=== PATIENT | female | born 1965 | race Caucasian/White ===

== ENCOUNTER 2016-12-16 12:59 | Emergency (ER) | payer SELFPAY ==
[~2016-12-16] VITALS: Ht 172.7 cm; Wt 63.5 kg
[2016-12-16] MEDS ORDERED: NS IV 1000 ML 1,000 ML IV ONE (13:06)
[2016-12-16] MEDS ORDERED: RT-ALBUINH IH (13:12)
[2016-12-16] MEDS ORDERED: DILT180C PO (13:12)
[2016-12-16] MEDS ORDERED: MONT10TA24 PO (13:12)
[2016-12-16] MEDS ORDERED: ALPR0.25 PO (13:12)
[2016-12-16] MEDS ORDERED: ASPI1TAB22 PO (13:12)
[2016-12-16] MEDS ORDERED: BUDE10.2 IH (13:12)
[2016-12-16 13:25] LABS: BASOPHILS % (AUTO) 0 % (0-10); EOSINOPHILS # (AUTO) 0.3 10^3/uL (0.0-0.3); EOSINOPHILS % (AUTO) 2 % (0-10); LYMPHOCYTES % (AUTO) 7 % (12-44); MEAN CORPUSCULAR HEMOGLOBIN 29 PG (25-34); MEAN CORPUSCULAR HGB CONC 35 G/DL (32-36); MEAN CORPUSCULAR VOLUME 83 FL (80-99); MEAN PLATELET VOLUME 10.3 FL (7.4-10.4); MONOCYTES # (AUTO) 0.5 X 10^3 (0.0-1.0); MONOCYTES % (AUTO) 3 % (0-12); NEUTROPHILS # (AUTO) 12.4 X 10^3 (1.8-7.8); NEUTROPHILS % (AUTO) 87 % (42-75); PLATELET COUNT 240 10^3/uL (130-400); RED BLOOD COUNT 4.65 10^6/uL (4.35-5.85); RED CELL DISTRIBUTION WIDTH 14.1 % (10.0-14.5); WHITE BLOOD COUNT 14.2 10^3/uL (4.3-11.0)
[2016-12-16 13:44] LABS: BAND NEUTROPHILS 1 %; BASOPHILS % (MANUAL) 0 %; EOSINOPHILS % (MANUAL) 0 %; LYMPHOCYTES % (MANUAL) 11 %; NEUTROPHILS % (MANUAL) 83 %
--- NOTE | 2016-12-16 13:52 | ED Abdominal Pain ---
General Chief Complaint: Abdominal/GI Problems Stated Complaint: RIGHT FLANK PAIN/BLOOD IN URINE Nursing Triage Note: c/o R flank pain starting earlier, patient reports going to [facility] and given shot of toradol and phenergan. patient was told she had blood in her urine Sepsis Screen: No Definite Risk Source of Information: Patient Exam Limitations: No Limitations History of Present Illness Time Seen By Provider: 13:00 Initial Comments This 51-year-old woman presents to the emergency room with complaints of right flank pain and hematuria. She was actually seen at [facility] in [place] earlier today for right flank pain. A UA was performed and she was found to have hematuria. She was given injections of Phenergan and Toradol. Pain and nausea have resolved. However, she was advised to present to this ER for further evaluation. She was felt to likely have a ureteral stone and the CT scanner at [facility] was not functioning today. Allergies and Home Medications Allergies Coded Allergies: tramadol (Verified Allergy, Unknown, 12/16/16) Home Medications Albuterol Sulfate 1 Puff Puff, 2 PUFF IH Q4H, (Reported) 1 PUFF = 90 MCG Alprazolam 0.25 Mg Tablet, 0.25 MG PO, (Reported) Aspirin/Acetaminophen/Caffeine 1 Each Tablet, 1 EACH PO, (Reported) Budesonide/Formoterol Fumarate 10.2 Gm Hfa.aer.ad, 2 PUFF IH BID, (Reported) Diltiazem HCl 180 Mg Cap.er.24h, 180 MG PO DAILY, (Reported) Hydrocodone/Acetaminophen 1 Each Tablet, 1-2 EACH PO Q6H PRN for PAIN, #20 Prescribed by: ROBERTO DE SOUZA on 12/16/16 1450 Montelukast Sodium 10 Mg Tablet, 10 MG PO, (Reported) Ondansetron 4 Mg Tab.rapdis, 4 MG SL Q4H PRN for NAUSEA-1ST LINE, #10 Ref 1 Prescribed by: ROBERTO DE SOUZA on 12/16/16 1450 Sulfamethoxazole/Trimethoprim 1 Each Tablet, 1 EACH PO BID, #20 Prescribed by: ROBERTO DE SOUZA on 12/16/16 1457 Review of Systems Constitutional: no symptoms reported EENTM: No Symptoms Reported Respiratory: No Symptoms Reported Cardiovascular: No Symptoms Reported Gastrointestinal: See HPI Genitourinary: See HPI Musculoskeletal: no symptoms reported Skin: no symptoms reported Psychiatric/Neurological: No Symptoms Reported Past Mmydhfr-Qpjvty-Trznez Hx Patient Social History Alcohol Use: Denies Use Recreational Drug Use: No Smoking Status: Never a Smoker Recent Foreign Travel: No Contact w/Someone Who Travel: No Recent Infectious Disease Expo: No Recent Hopitalizations: No Seasonal Allergies Seasonal Allergies: Yes Surgeries HX Surgeries: Yes (D&C) Respiratory Hx Respiratory Disorders: Yes Respiratory Disorders: COPD Cardiovascular Hx Cardiac Disorders: Yes (TACHYCARDIA) Neurological Hx Neurological Disorders: Yes Neurological Disorders: Headaches /Migraines Reproductive System Hx Reproductive Disorders: No Sexually Transmitted Disease: No Genitourinary Hx Genitourinary Disorders: Yes Genitourinary Disorders: Kidney Stones Gastrointestinal Hx Gastrointestinal Disorders: No Musculoskeletal Hx Musculoskeletal Disorders: No Endocrine Hx Endocrine Disorders: No HEENT HX ENT Disorders: Yes (strabismus) Cancer Hx Cancer: No Psychosocial Hx Psychiatric Problems: Yes Behavioral Health Disorders: Anxiety Integumentary HX Skin/Integumentary Disorder: No Blood Transfusions Hx Blood Disorders: No Physical Exam Vital Signs VS - Last 72 Hours, by Label 12/16/16 12/16/16 13:03 15:24 Temp 97.7 Pulse 110 108 Resp 18 18 B/P (MAP) 155/78 Pulse Ox 100 99 O2 Delivery Room Air Capillary Refill : Less Than 3 Seconds General Appearance: WD/WN, no apparent distress HEENT: PERRL/EOMI, normal ENT inspection, pharynx normal Neck: normal inspection Respiratory: lungs clear, normal breath sounds, no respiratory distress, no accessory muscle use Cardiovascular: no edema, no murmur, tachycardia Gastrointestinal: normal bowel sounds, non tender, soft Extremities: normal inspection, no pedal edema Back: normal inspection, no CVA tenderness Neurologic/Psychiatric: meal packer II-XII nml as tested, no motor/sensory deficits, alert, normal mood/affect, oriented x 3 Skin: normal color, warm/dry Progress/Results/Core Measures Results/Orders Lab Results Laboratory Tests Test 12/16/16 13:15 12/16/16 13:52 Range/Units White Blood Count 14.2 H 4.3-11.0 10^3/uL Red Blood Count 4.65 4.35-5.85 10^6/uL Hemoglobin 13.6 11.5-16.0 G/DL Hematocrit 39 35-52 % Mean Corpuscular Volume 83 80-99 FL Mean Corpuscular Hemoglobin 29 25-34 PG Mean Corpuscular Hemoglobin Concent 35 32-36 G/DL Red Cell Distribution Width 14.1 10.0-14.5 % Platelet Count 240 130-400 10^3/uL Mean Platelet Volume 10.3 7.4-10.4 FL Neutrophils (%) (Auto) 87 H 42-75 % Lymphocytes (%) (Auto) 7 L 12-44 % Monocytes (%) (Auto) 3 0-12 % Eosinophils (%) (Auto) 2 0-10 % Basophils (%) (Auto) 0 0-10 % Neutrophils # (Auto) 12.4 H 1.8-7.8 X 10^3 Lymphocytes # (Auto) 1.0 1.0-4.0 X 10^3 Monocytes # (Auto) 0.5 0.0-1.0 X 10^3 Eosinophils # (Auto) 0.3 0.0-0.3 10^3/uL Basophils # (Auto) 0.0 0.0-0.1 10^3/uL Neutrophils % (Manual) 83 % Lymphocytes % (Manual) 11 % Monocytes % (Manual) 5 % Eosinophils % (Manual) 0 % Basophils % (Manual) 0 % Band Neutrophils 1 % Blood Morphology Comment NORMAL Sodium Level 141 135-145 MMOL/L Potassium Level 4.3 3.6-5.0 MMOL/L Chloride Level 106 98-107 MMOL/L Carbon Dioxide Level 22 21-32 MMOL/L Anion Gap 13 5-14 MMOL/L Blood Urea Nitrogen 9 7-18 MG/DL Creatinine 0.80 0.60-1.30 MG/DL Estimat Glomerular Filtration Rate > 60 BUN/Creatinine Ratio 11 Glucose Level 100 70-105 MG/DL Calcium Level 9.4 8.5-10.1 MG/DL Total Bilirubin 0.3 0.1-1.0 MG/DL Aspartate Amino Transf (AST/SGOT) 29 5-34 U/L Alanine Aminotransferase (ALT/SGPT) 15 0-55 U/L Alkaline Phosphatase 81 40-136 U/L Total Protein 8.1 6.4-8.2 G/DL Albumin 4.4 3.2-4.5 G/DL Urine Color YELLOW Urine Clarity CLEAR Urine pH 6.5 5-9 Urine Specific Burton 1.020 1.016-1.022 Urine Protein 1+ H NEGATIVE Urine Glucose (UA) NEGATIVE NEGATIVE Urine Ketones NEGATIVE NEGATIVE Urine Nitrite NEGATIVE NEGATIVE Urine Bilirubin NEGATIVE NEGATIVE Urine Urobilinogen NORMAL NORMAL MG/DL Urine Leukocyte Esterase 1+ H NEGATIVE Urine RBC (Auto) 4+ H NEGATIVE Urine RBC 10-25 H /HPF Urine WBC 2-5 /HPF Urine Squamous Epithelial Cells 5-10 /HPF Urine Crystals PRESENT H /LPF Urine Calcium Oxalate Crystals RARE H /LPF Urine Bacteria FEW H /HPF Urine Casts NONE /LPF Urine Mucus MODERATE H /LPF Urine Culture Indicated YES Micro Results Microbiology 12/16/16 Urine Culture - Final, Complete My Orders Orders - ROBERTO IZAGUIRRE MD Cbc With Automated Diff (12/16/16 13:00) Comprehensive Metabolic Panel (12/16/16 13:00) Ua Culture If Indicated (12/16/16 13:00) Saline Lock/Iv-Start (12/16/16 13:00) Ns Iv 1000 Ml (Sodium Chloride 0.9%) (12/16/16 13:06) Manual Differential (12/16/16 13:15) Urine Culture (12/16/16 13:52) Ct Abd/Pelvis Wo(Kidney Stone) (12/16/16 14:29) Medications Given in ED Vital Signs/I&O Vital Sign - Last 12Hours 12/16/16 12/16/16 13:03 15:24 Temp 97.7 Pulse 110 108 Resp 18 18 B/P (MAP) 155/78 Pulse Ox 100 99 O2 Delivery Room Air Blood Pressure Mean: 103 Progress Note : Progress Note UA confirmed presence of blood. CT was ordered for evaluation of ureteral stone. Ureteral stone was confirmed. Patient was given a liter of IV fluids. She was dismissed on antibiotic therapy due to the elevated WBC count. Follow- up and referral to urologist was recommended. Diagnostic Imaging Diagonstic Imaging: CT Plain Films/CT/US/NM/MRI: abdomen, pelvis Comments CT scan abdomen and pelvis viewed by me and report reviewed. Discussed with radiologist. See report below: NAME: [facility] REC#: [id number] PT STATUS: DEP ER : 1965 PHYSICIAN: ROBERTO IZAGUIRRE MD ADMIT DATE: 12/16/16/ER Signed Date of Exam: 12/16/16 CT ABD/PELVIS WO(KIDNEY STONE) PROCEDURE: CT urinary tract, rule out kidney stone. TECHNIQUE: Multiple contiguous axial images were obtained through the abdomen and pelvis without the use of intravenous contrast. INDICATION: Right-sided abdominal pain. COMPARISON: There are no prior studies available for comparison. FINDINGS: Axial Image 117/147 through the low pelvis does show a 2-3 mm calculus within the distal right ureter roughly 1 cm from the ureterovesical junction. The ureter proximal to the calculus is slightly dilated as is the right renal pelvis and I do suspect that there is partial obstruction of the right collecting system due to the aforementioned calculus. There is no evidence for nephrolithiasis on the right but there are two small (2-3 mm) nonobstructive calculi within the left kidney. There is no sign of obstruction of the left collecting system. The urinary bladder is grossly unremarkable. The appendix was visualized and is not abnormally thickened. The uterus is not enlarged. There is no pelvic mass or free fluid collection noted. The liver does not appear to be enlarged. There is no focal mass involving the liver. The spleen, pancreas, adrenals, gallbladder, aorta, and inferior vena cava are unremarkable for an acute abnormality. The stomach is not well distended and consequently difficult to assess. The lung bases are clear. There are mild chronic changes in each lower lobe. There is no obvious breast mass. The bone windows show no sign of a fracture or of a destructive lesion. IMPRESSION: 1. There is partial obstruction of the right collecting system due to a 2-3 mm calculus near the ureterovesical junction. There are also small nonobstructive calculi within the left kidney. 2. There is no acute abnormality of the abdomen or pelvis noted, otherwise. 3. These results were discussed with Dr. Izaguirre in the ER. Dictated by: Dictated on workstation # [id number] Dict: 12/16/16 1510 Trans: 12/17/1617 AS6 [id number] Interpreted by: ELTON TELLO MD Electronically signed by:ELTON TELLO MD 12/17/16716 Departure Impression Impression: Primary Impression: Right ureteral stone Additional Impressions: Ureteral obstruction Leukocytosis Qualified Codes: D72.829 - Elevated white blood cell count, unspecified Disposition: 01 HOME, SELF-CARE Condition: Improved Departure-Patient Inst. Decision time for Depature: 14:47 Referrals: NO,LOCAL PHYSICIAN (PCP/Family) Primary Care Physician Patient Instructions: Kidney Stones in Adults Add. Discharge Instructions: Drink plenty of clear liquids. Strain your urine and bring any stones collected to your follow-up appointment. Follow-up with your doctor as soon as possible. Return to the ER if symptoms worsen. Complete your antibiotics as prescribed. You may use Zofran (ondansetron) as prescribed for nausea and vomiting. Use hydrocodone as prescribed for pain. All discharge instructions reviewed with patient and/or family. Voiced understanding. Scripts Sulfamethoxazole/Trimethoprim (Bactrim Ds Tablet) 1 Each Tablet 1 EACH PO BID, #20 TAB Prov: ROBERTO IZAGUIRRE MD 12/16/16 Hydrocodone/Acetaminophen (Hydrocodon -Acetaminophen 5-325) 1 Each Tablet 1-2 EACH PO Q6H Y for PAIN, #20 TAB Prov: ROBERTO IZAGUIRRE MD 12/16/16 Ondansetron (Zofran Odt) 4 Mg Tab.rapdis 4 MG SL Q4H Y for NAUSEA-1ST LINE, #10 TAB 1 Refill Prov: ROBERTO IZAGUIRRE MD 12/16/16 ROBERTO IZAGUIRRE MD Dec 16, 2016 13:52
[2016-12-16 14:03] LABS: BILIRUBIN,URINE NEGATIVE (NEGATIVE); KETONES,URINE NEGATIVE (NEGATIVE); LEUKOCYTE ESTERASE ,URINE 1+ (NEGATIVE); NITRITE,URINE NEGATIVE (NEGATIVE); PH,URINE 6.5 (5-9); PROTEIN,URINE 1+ (NEGATIVE); UROBILINOGEN,URINE NORMAL (NORMAL)
[2016-12-16 14:18] LABS: CALCIUM OXALATE CRYSTALS,UR RARE /LPF
[2016-12-16 14:29] LABS: ALANINE AMINOTRANSFERASE 15 U/L (0-55); ALBUMIN 4.4 G/DL (3.2-4.5); ANION GAP 13 MMOL/L (5-14); ASPARTATE AMINO TRANSFERASE 29 U/L (5-34); BILIRUBIN,TOTAL 0.3 MG/DL (0.1-1.0); BLOOD UREA NITROGEN 9 MG/DL (7-18); BUN/CREATININE RATIO 11; CALCIUM 9.4 MG/DL (8.5-10.1); CARBON DIOXIDE 22 MMOL/L (21-32); CHLORIDE 106 MMOL/L (98-107); GFR ESTIMATED > 60; GLUCOSE 100 MG/DL (70-105); SODIUM 141 MMOL/L (135-145); TOTAL PROTEIN 8.1 G/DL (6.4-8.2)
[2016-12-16 14:38] LABS: POTASSIUM 4.3 MMOL/L (3.6-5.0)
[2016-12-16] MEDS ORDERED: HYDR-3812 PO (14:50)
[2016-12-16] MEDS ORDERED: ONDA4TAB8 SL (14:50)
[2016-12-16] MEDS ORDERED: SULF1TAB35 PO ×2 (14:54→14:57)
[2016-12-16 15:24] VITALS: BP 123/79
--- NOTE | 2016-12-16 15:37 | Diagnostic Imaging Report ---
PROCEDURE: CT urinary tract, rule out kidney stone. TECHNIQUE: Multiple contiguous axial images were obtained through the abdomen and pelvis without the use of intravenous contrast. INDICATION: Right-sided abdominal pain. COMPARISON: There are no prior studies available for comparison. FINDINGS: Axial Image 117/147 through the low pelvis does show a 2-3 mm calculus within the distal right ureter roughly 1 cm from the ureterovesical junction. The ureter proximal to the calculus is slightly dilated as is the right renal pelvis and I do suspect that there is partial obstruction of the right collecting system due to the aforementioned calculus. There is no evidence for nephrolithiasis on the right but there are two small (2-3 mm) nonobstructive calculi within the left kidney. There is no sign of obstruction of the left collecting system. The urinary bladder is grossly unremarkable. The appendix was visualized and is not abnormally thickened. The uterus is not enlarged. There is no pelvic mass or free fluid collection noted. The liver does not appear to be enlarged. There is no focal mass involving the liver. The spleen, pancreas, adrenals, gallbladder, aorta, and inferior vena cava are unremarkable for an acute abnormality. The stomach is not well distended and consequently difficult to assess. The lung bases are clear. There are mild chronic changes in each lower lobe. There is no obvious breast mass. The bone windows show no sign of a fracture or of a destructive lesion. IMPRESSION: 1. There is partial obstruction of the right collecting system due to a 2-3 mm calculus near the ureterovesical junction. There are also small nonobstructive calculi within the left kidney. 2. There is no acute abnormality of the abdomen or pelvis noted, otherwise. 3. These results were discussed with Dr. Izaguirre in the ER. Dictated by: Dictated on workstation # [id number]
--- OUTSIDE RECORDS SUMMARY | 2017-01-17 17:18 | XMS REPORT | Continuity of Care Document ---
Author Author [facility] Organization [facility] Address Unknown Phone Unavailable Allergies Active Description Code Type Severity Reaction Onset Reported/Identified Relationship to Patient Clinical Status Yes No Known Drug Allergies [id number] Drug Allergy Unknown N/ A 12/16/2016 Yes tramadol [id number] Drug Allergy Unknown N/A 12/16/2016 Medications Problems Date Dx Coded Attending Type Code Diagnosis Diagnosed By 12/17/2016 ROBERTO JASON MD T Ot D72.829 ELEVATED WHITE BLOOD CELL COUNT, UNSPECI 12/17/2016 ROBERTO JASON MD Ot J44.9 CHRONIC OBSTRUCTIVE PULMONARY DISEASE , U 12/17/2016 ROBERTO JASON MD Ot N20.2 CALCULUS OF KIDNEY WITH CALCULUS OF URET 12/17/2016 ROBERTO JASON MD Ot R10.31 RIGHT LOWER QUADRANT PAIN 12/17/2016 ROBERTO JASON MD Ot R31.9 HEMATURIA, UNSPECIFIED 12/17/2016 ROBERTO JASON MD T Ot Z79.82 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INTAINER (CURRENT) USE OF ASPIRIN 12/17/2016 ROBERTO JASON MD T Ot Z79.899 OTHER 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 MAINTAINER (CURRENT) DRUG THERAPY 12/23/2016 ROBERTO JASON MD Ot D72.829 ELEVATED WHITE BLOOD CELL COUNT, UNSPECI 12/23/2016 ROBERTO JASON MD Ot J44.9 CHRONIC OBSTRUCTIVE PULMONARY DISEASE , U 12/23/2016 ROBERTO JASON MD Ot N20.2 CALCULUS OF KIDNEY WITH CALCULUS OF URET 12/23/2016 ROBERTO JASON MD T Ot R10.31 RIGHT LOWER QUADRANT PAIN 12/23/2016 ROBERTO JASON MD Ot R31.9 HEMATURIA, UNSPECIFIED 12/23/2016 ROBERTO JASON MD T Ot Z79.82 SENIOR CARE (CURRENT) USE OF ASPIRIN 12/23/2016 CASIE CONCEPCION, ROBERTO Mcgraw Ot Z79.899 OTHER 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 MAINTAINER (CURRENT) DRUG THERAPY Procedures Results Test Result Range Complete blood count (CBC) with automated white blood cell (WBC) differential - 12/16/16 13:15 Blood leukocytes automated count (number/volume) 14.2 10*3/ uL 4.3-11.0 Blood erythrocytes automated count (number/volume) 4.65 10*6 /uL 4.35-5.85 Venous blood hemoglobin measurement (mass/volume) 13.6 g/dL 11.5-16.0 Blood hematocrit (volume fraction) 39 % 35-52 Automated erythrocyte mean corpuscular volume 83 [foz_us] 80-99 Automated erythrocyte mean corpuscular hemoglobin (mass per erythrocyte) 29 pg 25-34 Automated erythrocyte mean corpuscular hemoglobin concentration measurement ( mass/volume) 35 g/dL 32-36 Automated erythrocyte distribution width ratio 14.1 % 10.0-14.5 Automated blood platelet count (count/volume) 240 10*3/uL 130-400 Automated blood platelet mean volume measurement 10.3 [foz_ us] 7.4-10.4 Automated blood neutrophils/100 leukocytes 87 % 42-75 Automated blood lymphocytes/100 leukocytes 7 % 12-44 Blood monocytes/100 leukocytes 3 % 0-12 Automated blood eosinophils/100 leukocytes 2 % 0-10 Automated blood basophils/100 leukocytes 0 % 0-10 Blood neutrophils automated count (number/volume) 12.4 10*3 1.8-7.8 Blood lymphocytes automated count (number/volume) 1.0 10*3 1.0-4.0 Blood monocytes automated count (number/volume) 0.5 10*3 0.0-1.0 Automated eosinophil count 0.3 10*3/uL 0.0-0.3 Automated blood basophil count (count/volume) 0.0 10*3/uL 0.0-0.1 Blood manual differential performed detection - 12/16/16 13:15 Blood monocytes/100 leukocytes 5 % NRG Manual blood segmented neutrophils/100 leukocytes 83 % NRG Blood band neutrophils/100 leukocytes 1 % NRG Manual blood lymphocytes/100 leukocytes 11 % NRG Manual eosinophils/100 leukocytes in nose 0 % NRG Manual blood basophils/100 leukocytes 0 % NRG Blood erythrocyte morphology finding identification NORMAL NRG Comprehensive metabolic panel - 12/16/16 13:15 Serum or plasma sodium measurement (moles/volume) 141 mmol/ L 135-145 Serum or plasma potassium measurement (moles/volume) 4.3 mmol/L 3.6-5.0 Serum or plasma chloride measurement (moles/volume) 106 mmol /L 98-107 Carbon dioxide 22 mmol/L 21-32 Serum or plasma anion gap determination (moles/volume) 13 mmol/L 5-14 Serum or plasma urea nitrogen measurement (mass/volume) 9 mg /dL 7-18 Serum or plasma creatinine measurement (mass/volume) 0.80 mg /dL 0.60-1.30 Serum or plasma urea nitrogen/creatinine mass ratio 11 [facility] Serum or plasma creatinine measurement with calculation of estimated glomerular filtration rate > [facility] Serum or plasma glucose measurement (mass/volume) 100 mg/dL 70-105 Serum or plasma calcium measurement (mass/volume) 9.4 mg/dL 8.5-10.1 Serum or plasma total bilirubin measurement (mass/volume) 0.3 mg/dL 0.1-1.0 Serum or plasma alkaline phosphatase measurement (enzymatic activity/volume) 81 U/L 40-136 Serum or plasma aspartate aminotransferase measurement (enzymatic activity/ volume) 29 U/L 5-34 Serum or plasma alanine aminotransferase measurement (enzymatic activity/volume ) 15 U/L 0-55 Serum or plasma protein measurement (mass/volume) 8.1 g/dL 6.4-8.2 Serum or plasma albumin measurement (mass/volume) 4.4 g/dL 3.2-4.5 Complete urinalysis with reflex to culture - 12/16/16 13:52 Urine color determination YELLOW [facility] Urine clarity determination CLEAR [facility] Urine pH measurement by test strip 6.5 5 -9 Specific gravity of urine by test strip 1.020 1.016-1.022 Urine protein assay by test strip, semi-quantitative 1+ NEGATIVE Urine glucose detection by automated test strip NEGATIVE NEGATIVE Erythrocytes detection in urine sediment by light microscopy 4+ NEGATIVE Urine ketones detection by automated test strip NEGATIVE NEGATIVE Urine nitrite detection by test strip NEGATIVE NEGATIVE Urine total bilirubin detection by test strip NEGATIVE NEGATIVE Urine urobilinogen measurement by automated test strip (mass/volume) NORMAL NORMAL Urine leukocyte esterase detection by dipstick 1+ NEGATIVE Automated urine sediment erythrocyte count by microscopy (number/high power field) [HPF] [facility] Automated urine sediment leukocyte count by microscopy (number/high power field ) [HPF] NRG Bacteria detection in urine sediment by light microscopy FEW NRG Squamous epithelial cells detection in urine sediment by light microscopy 5-10 NRG Crystals detection in urine sediment by light microscopy PRESENT NRG Casts detection in urine sediment by light microscopy NONE NRG Mucus detection in urine sediment by light microscopy MODERATE NRG Complete urinalysis with reflex to culture YES NRG Calcium oxalate crystals detection in urine sediment by light microscopy RARE NRG Bacterial urine culture - 12/16/16 13:52 URINE CULTURE RESULTS <10,000/ML NRG Encounters ACCT No. Visit Date/Time Discharge Status Pt. Type Provider Facility Loc./Unit Complaint [id number] 12/16/2016 13:01:00 2016 15:25:00 DIS Outpatient CASIE CONCEPCION, ROBERTO Mcgraw [facility] ER RIGHT FLANK PAIN/BLOOD IN URINE [id number] 03/29/2013 09:27:00 2012 23:59:59 CLS Outpatient
== END 2016-12-16 15:25 | disposition home or self-care (01) ==
LOC: EDUNIT# 12:59 → ER 13:01
DX: N20.2 Calculus of kidney with calculus of ureter (principal); D72.829 Elevated white blood cell count, unspecified; R31.9 Hematuria, unspecified; J44.9 Chronic obstructive pulmonary disease, unspecified; Z79.82 Long term (current) use of aspirin; Z79.899 Other long term (current) drug therapy
CPT/HCPCS: 36415; 74176; 80053; 81000; 85007; 85027; 87088; 96360

== ENCOUNTER 2019-06-13 11:29 | Emergency (ER) | payer MEDICARE, OTHER ==
[~2019-06-13] VITALS: Ht 172.7 cm; Wt 60.0 kg
[~2019-06-13 11:29] MED LIST: ACHD5005 PO; ALPR0.25 PO; ASPI-789 PO; BUDE10.2 IH; DILT180C PO; MONT10TA24 PO; ONDA4TAB8 SL; RT-ALBUINH IH; SULF1TAB35 PO
--- NOTE | 2019-06-13 12:11 | ED Chest Pain ---
General Chief Complaint: Chest Pain Stated Complaint: CHEST PAIN Source: patient Exam Limitations: no limitations History of Present Illness Date Seen by Provider: Jun 13, 2019 Time Seen by Provider: 11:45 Initial Comments Patient is a 54-year-old female who presents with complaints of left-sided ear pain for the past 2 days. Patient reports dullness and fullness in left ear without change in hearing. Patient contacted her PCP is soft morning to schedule appointment had also mentioned that she had brief chest pain 5 days ago that lasted less than one day and that has not recurred. The patient was instructed to go to the ED for evaluation. Patient denies history of CAD denies exertional chest symptoms, shortness of breath diaphoresis nausea or other anginal-type. Patient states she was able to complete a venkata walk 2 days ago without any symptoms whatsoever. No abdominal pain. No fever chills or sweats. No other acute symptoms or complaints. Patient has history of intermittent A. fib and is not anticoagulated. Denies palpitations and lightheadedness. Timing/Duration: gone now, 6-7 days, other Location: epigastric Radiation: no radiation Activities at Onset: none Prior CP/Workup: no prior chest pain Associated Symptoms: denies symptoms Allergies and Home Medications Allergies Coded Allergies: tramadol (Verified Allergy, Unknown, 12/16/16) Home Medications Albuterol Sulfate 1 Puff Puff, 2 PUFF IH Q4H, (Reported) 1 PUFF = 90 MCG Budesonide/Formoterol Fumarate 10.2 Gm Hfa.aer.ad, 2 PUFF IH BID, (Reported) Diltiazem HCl 180 Mg Cap.er.24h, 180 MG PO DAILY, (Reported) Hydrocodone Bit/Acetaminophen 1 Each Tablet, 1-2 EACH PO Q6H PRN for PAIN Prescribed by: ROBERTO DE SOUZA on 12/16/16 1450 Ondansetron 4 Mg Tab.rapdis, 4 MG SL Q4H PRN for NAUSEA-1ST LINE Prescribed by: ROBERTO DE SOUZA on 12/16/16 1450 Sulfamethoxazole/Trimethoprim 1 Each Tablet, 1 EACH PO BID Prescribed by: ROBERTO DE SOUZA on 12/16/16 1457 Patient Home Medication List Home Medication List Reviewed: Yes Review of Systems Review of Systems Constitutional: see HPI EENTM: See HPI Respiratory: See HPI Cardiovascular: See HPI Gastrointestinal: See HPI Past Hfohhbd-Pxemtn-Kjfnlm Hx Past Med/Social Hx: Reviewed Nursing Past Med/Soc Hx Patient Social History Recent Hopitalizations: No Seasonal Allergies Seasonal Allergies: Yes Past Medical History COPD Headaches /Migraines Reproductive Disorders: No Sexually Transmitted Disease: No Kidney Stones Anxiety Physical Exam Vital Signs Capillary Refill : Height, Weight, BMI Height: 5'8.00" Weight: 140lbs. oz. 63.735730hg; BMI Method:Stated General Appearance: No Apparent Distress, WD/WN HEENT: PERRL/EOMI, Normal ENT Inspection, Pharynx Normal, Other (TMs clear, pink with bilateral effusions without bulging.) Neck: Full Range of Motion, Normal Inspection, Non Tender Respiratory: Chest Non Tender, Lungs Clear, Normal Breath Sounds Cardiovascular: Regular Rate, Rhythm, No Edema, No Gallop, Normal Peripheral Pulses, Other (negative Homans signs.) Gastrointestinal: Non Tender Neurologic/Psychiatric: Alert, Oriented x3 Skin: Normal Color Focused Exam Sepsis Stage: Ruled Out Departure Communication (Admissions) EKG reviewed: No acute ST segment elevation or depression on my review Patient with nonexertional chest pain several days ago without recurrence. Overall, the patient is low risk for coronary disease. EKG does not show evidence of active ischemia. Recommendations are for follow-up for PCP for further risk stratification and consideration of outpatient testing. Patient instructed to take Tylenol and decongestant for your pain. Return precautions reviewed. Patient verbalizes understanding and agreement discharge instructions prior to departure. Impression Primary Impression: Acute serous otitis media of left ear Disposition: 01 HOME, SELF-CARE Condition: Improved Departure-Patient Inst. Patient Instructions: Chest Pain (DC), Serous Otitis Media Add. Discharge Instructions: Take Tylenol as needed for pain and Zyrtec or Claritin for decongestion. Follow- up with your PCP for further evaluation of ear pain and consideration of outpatient cardiac stress testing. Return to the ED if new or concerning symptoms. All discharge instructions reviewed with patient and/or family. Voiced understanding. GEORGIA KITCHEN DO Jun 13, 2019 12:11
[2019-06-13 12:15] VITALS: BP 120/58
== END 2019-06-13 12:11 | disposition home or self-care (01) ==
LOC: EDUNIT# 11:29 → ER FS 11:31
DX: H65.02 Acute serous otitis media, left ear (principal); J44.9 Chronic obstructive pulmonary disease, unspecified; F41.9 Anxiety disorder, unspecified; G43.909 Migraine, unspecified, not intractable, without status migrainosus; I48.91 Unspecified atrial fibrillation; Z88.5 Allergy status to narcotic agent; Z87.442 Personal history of urinary calculi
CPT/HCPCS: 93005

== ENCOUNTER 2021-05-06 05:38 | Outpatient (CLI) | payer MEDICARE ==
[~2021-05-06] VITALS: Ht 170.2 cm; Wt 58.5 kg
[~2021-05-06 05:38] MED LIST changes: -DILT180C PO; +DILT180C85 PO; -MONT10TA24 PO; +MONT10TA32 PO; -SULF1TAB35 PO; +SULF1TAB38 PO
== END 2021-05-07 12:32 | disposition home or self-care (01) ==
LOC: PREOP 05:38
PROVIDERS: ATTEND Surgery
DX: Z01.818 Encounter for other preprocedural examination (principal)

== ENCOUNTER 2021-05-13 11:13 | Day surgery (SDC) | payer MEDICARE ==
[2021-05-13] VITALS (8 sets, daily range): BP systolic 109–148; BP diastolic 55–79
[~2021-05-13] VITALS: Ht 170.2 cm; Wt 58.5 kg
[2021-05-13] MEDS ORDERED: LACTATED RINGERS 1,000 ML IV ONE (11:31)
[2021-05-13] MEDS ORDERED: LACTATED RINGERS 1,000 ML IV STA (11:43)
[2021-05-13] MEDS ORDERED: MIDAZOLAM 2 MG/2 ML (VERSED) VIAL ONE (12:31)
[2021-05-13] MEDS ORDERED: PROPOFOL INJECTION 50 ML IV ONE (12:31)
--- NOTE | 2021-05-13 13:12 | Progress Note-Post Operative ---
Post-Operative Progess Note Surgeon (s)/Structural Ironworker (s) Surgeon SHAHNAZ JENSEN DO Structural Ironworker: na Pre-Operative Diagnosis +cologuard Post-Operative Diagnosis internal hemorroids Procedure & Operative Findings Date of Procedure 05/13/21 Procedure Performed/Findings colonoscopy Anesthesia Type per analyzer sales Estimated Blood Loss Estimated blood loss (mL): none Specimens/Packing Specimens Removed na SHAHNAZ JENSEN DO May 13, 2021 13:12
--- NOTE | 2021-05-13 13:18 | Discharge Inst-Simple/Standard ---
Discharge Inst-Standard Patient Instructions/Follow Up Plan of Care/Instructions/FU: Repeat colonoscopy in 10 years unless family history of colon cancer which would be 5 years. Any issues before that be seen at that time. Activity as Tolerated: Yes Discharge Diet: Regular Diet SHAHNAZ JENSEN DO May 13, 2021 13:18
--- NOTE | 2021-05-13 14:29 | Anesthesia-General Post-Op ---
MAC Patient Condition Mental Status/LOC: Same as Preop Cardiovascular: Satisfactory Nausea/Vomiting: Absent Respiratory: Satisfactory Pain: Controlled Complications: Absent Post Op Complications Complications None Follow Up Care/Instructions Patient Instructions None needed. Anesthesiology Discharge Order Discharge Order Patient is doing well, no complaints, stable vital signs, no apparent adverse anesthesia problems. No complications reported per nursing. GEORGIA GONZÁLES CRNA May 13, 2021 14:29
--- NOTE | 2021-05-13 17:58 | OPERATIVE REPORT ---
DATE OF SERVICE: 05/13/2021 PREOPERATIVE DIAGNOSIS: Positive Cologuard. POSTOPERATIVE DIAGNOSIS: Internal hemorrhoids. PROCEDURE PERFORMED: Colonoscopy. SURGEON: Shahnaz Jonas DO. ANESTHESIA: Per PREVENTIVE MEDICINE SPECIALIST. ESTIMATED BLOOD LOSS: None. COMPLICATIONS: None. INDICATIONS FOR PROCEDURE: The patient is a 55-year-old female, who had a positive Cologuard test. She understands risks and benefits of the procedure and wished to proceed with the procedure. Consent was signed in the chart. DESCRIPTION OF PROCEDURE: The patient was taken to the endoscopy suite and placed in a left lateral recumbent position. Timeout was performed. Digital rectal exam was performed noting internal hemorrhoids. No palpable polyps, masses or ulcerations. Scope was inserted in the rectum and advanced all the way to cecum with minimal difficulty. Prep was adequate. Scope was then slowly retracted back. No polyps, masses or ulcerations within the cecum, ascending, transverse, descending and sigmoid colon. Once in the rectum, scope was attempted to be retroflexed, however, unable to do so due to a narrowing. The scope was inserted and retracted multiple times only noting internal hemorrhoids. Scope was then slowly retracted back until completely removed. The patient tolerated the procedure well without any complications. She was taken to the recovery room in a stable condition. RECOMMENDATIONS: The patient will be recommended repeat colonoscopy in 10 years unless family history of colon cancer, which would then be 5 years. Any issues before that be seen at that time for reevaluation. CC: Fiordaliza Irwin APRN - requested, unable to deliver. Job ID: [id number] DocumentID: [id number] Dictated Date: 05/13/2021 13:14:17 Medicaid Biller Date: 05/13/2021 17:58:17 Dictated By: SHAHNAZ JONAS DO
== END 2021-05-13 13:55 | disposition home or self-care (01) ==
LOC: ENDO 11:13
PROVIDERS: ATTEND Surgery
DX: K64.8 Other hemorrhoids (principal); J45.909 Unspecified asthma, uncomplicated; E07.9 Disorder of thyroid, unspecified; Z79.899 Other long term (current) drug therapy

== ENCOUNTER → 2023-05-10 | Outpatient (CLI) | payer MEDICARE, MEDICAID ==
[~2023-05-10] MED LIST changes: +ALBU8.5H6 IH; -ASPI-789 PO; +ASPI1TAB23 PO; +MONT-40 PO; -MONT10TA32 PO; -RT-ALBUINH IH
== END ==
LOC: CARD 09:52
PROVIDERS: ATTEND Nurse Practitioner Family
DX: I08.0 Rheumatic disorders of both mitral and aortic valves (principal)
CPT/HCPCS: 93306

== ENCOUNTER → 2023-08-18 | Outpatient (CLI) | payer MEDICARE ==
[~2023-08-18] MED LIST changes: +CATHETER FLUSH 10 ML SYR IVP PRN
[2023-08-18 09:47] VITALS: BP 168/80
--- NOTE | 2023-08-18 12:56 | Cardiology Stress Test Report ---
Stress Test Report Date of Procedure/Referring: Date of Procedure: Aug 18, 2023 PCP Fiordaliza Irwin Aprn Admitting Physician Admitting Physician: Attending Physician: Arun Bynum MD Baseline Heart Rate: 110 Baseline Blood Pressure: Blood Pressure Systolic: 168 Blood Pressure Diastolic: 80 Vital Signs Date Time Temp Pulse Resp B/P (MAP) Pulse Ox O2 Delivery O2 Flow Rate FiO2 08/18/23 09:47 118 17 168/80 (109) Baseline Vital Signs Vital Signs Date Time Temp Pulse Resp B/P (MAP) Pulse Ox O2 Delivery O2 Flow Rate FiO2 08/18/23 09:47 118 17 168/80 (109) Baseline EKG: Baseline EKG: NSR Summary: After explaining the procedure and details to the patient, she signed the consent and was brought to the stress nuclear laboratory. Patient exercised on standard Chauncey protocol, EKG, heart rate and blood pressure were monitored continuously, resting and stress doses of radio tracer were injected, imaging was acquired and reviewed in the short axis, horizontal long axis and vertical long axis views Patient was able to exercise for a total of 3.30 minutes on Chauncey protocol, METs 5.2 Maximum heart rate 142 Maximum blood pressure 185/72 Stress EKG, Minimal nondiagnostic changes Recovery EKG, Return to baseline TID: 1.07 SSS: 4 SDS: 4 EF: 68 Conclusion: Fair exercise tolerance for a total of 3 minutes and 30 seconds on standard Chauncey protocol total of 5.2 METS achieving 87% of maximal expected heart rate Baseline sinus tachycardia with appropriate heart rate response to exercise return to baseline during recovery Nondiagnostic EKG changes with exercise return to baseline during recovery Breast attenuation with moderate reversible ischemia involving the mid to apical anterior wall Normal left ventricular size, ejection fraction 68% Copy Copies To 1: [facility] [place]UN BYNUM MD Aug 18, 2023 12:56
== END ==
LOC: CARD 08:10
PROVIDERS: ATTEND Internal Medicine Cardiovascular Disease
DX: R06.09 Other forms of dyspnea (principal)
CPT/HCPCS: 78452; 93017; A9502